=== PATIENT | female | born 1975 | race Caucasian/White ===

== ENCOUNTER → 2023-02-01 11:01 | Outpatient (REF) | payer OTHER, SELFPAY ==
--- NOTE | 2023-02-01 11:09 | CA_ITS ---
Transthoracic Echocardiogram Patient (Last, First, Middle): Maren Ervin M Gender: Female Date of : 1975 Age: 47 Procedure Date: 02/01/2023 Procedure Type: Transthoracic Echocardiogram Location: [facility] Height: 172.72 cm Weight: 86.18 kg BSA: 2.00 m2 Heart Rate: 68 bpm BP: 110 / 70 mmHg Adult Nurse Practitioner: LINDA Salas MD: Dandre Young MD [employer] Machine Operator: Reilly Jarrett MD Symptoms: SOB Study Quality: Adequate ECG Rhythm: Sinus Conclusions: - 1. Normal LV ejection fraction with LVEF of 60 65% with normal diastolic filling pattern 2. Normal cardiac valvular Doppler 3. Mildly dilated ascending aorta at 3.7 cm 4. Normal RV systolic pressure 5. No gross pericardial effusion Findings Left Ventricle Normal left ventricular size, thickness, and systolic function. The visually estimated ejection fraction is between 60-65%. Spectral Doppler is indicative of a normal filling pattern. Peak GLS is -17.6, borderline normal Right Ventricle Normal right ventricular cavity size and systolic function. Atria Both atria are normal in size. There is no evidence of interatrial shunt. Aortic Valve The aortic valve structure and function is likely normal. There is no aortic valve stenosis. There is no aortic valve regurgitation. Mitral Valve Normal mitral valve structure and function. There is trace mitral valve regurgitation. There is no mitral valve stenosis. Pulmonic Valve The pulmonic valve is likely normal. Tricuspid Valve Normal tricuspid valve structure. There is trace tricuspid valve regurgitation. The right ventricular systolic pressure is normal. The right ventricular systolic pressure is 16 mmHg. Normal right atrial pressure. There is no evidence of pulmonary hypertension. Great Vessels The pulmonary artery was not well visualized. There is mild dilatation of the ascending aorta measuring 3.70 cm. Venous The inferior vena cava is normal in size and collapses greater than 50% with inspiration. Pericardium/Pleural There is no evidence of pericardial effusion. Prior Study Comparison No prior study available for comparison. Measurements 2D Linear Measurements IVSd: 1.09 0.6-0.9/0.6-1.0 cm LVIDd: 5.54 3.9-5.3/4.2-5.9 cm LVIDd Index: 2.77 2.4-3.2/2.2-3.1 cm/m2 LVIDs: 3.35 2.0-3.6 cm LVPWd: 0.98 0.7-1.1 cm LA Diam: 3.40 2.7-3.8/3.0-4.0 cm LAIDs Index: 1.70 1.5-2.3 cm/m2 LV Mass: 280.78 67-162/88-224 g LV Mass Index: 140.39 43-95/49-115 g/m2 LVOT Diam: 2.00 3.0+(-)1.3 cm 2D Systolic Function EF 4C: 65.00 >55% EF 2C: 56.00 >55% EF BiP: 62.60 >55% Mitral Valve MV Pk E: 0.68 MV PK A: 0.63 MV Decel Time: 224.00 E/A: 1.10 E'Lateral: 10.70 E'Medial: 7.94 E/E' Med: 8.60 E/E' Lat: 6.40 PHT: 66.00 MVA PHT: 3.33 Decel Garza: 3.03 Aortic Valve AoV Pk Bobby: 1.09 AoV Mn Bobby: 0.82 AoV VTI: 0.23 AoV Pk Grad: 5.00 Aov Mn Grad: 3.00 VLAD Cont.VTI: 2.82 LVOT LVOT Pk Bobby: 0.96 LVOT Mn Bobby: 0.72 LVOT VTI: 0.21 LVOT Pk Grad: 4.00 LVOT Mn Grad: 2.00 LVOT Diam: 2.00 LVOT Area: 3.14 Diastolic Function MV Pk E: 0.68 MV Pk A: 0.63 E/A: 1.10 E'Medial: 7.94 E/E' Med: 8.60 E' Laterial: 10.70 E/E' Lat: 6.40 Right Ventricle TAPSE (mm): 21.90 TVS' Bobby: 12.00 Tricuspid Valve TR Pk Bobby: 1.77 TR Pk Grad: 13.00 RA Press: 3.00 RVSP: 16.00 Great Vessels Aorta Sinus of Valsalva: 4.00 2.0-3.5 cm Ao Asc: 3.70 2.1-3.4 cm Pulmonary Valve PV Pk Bobby: 0.84 Peak PV Grad: 3.00 Updated in Other Vendor System with Status of Final Reilly Jarrett MD electronically signed on 02/01/2023 3:50:30 PM with status of Final
== END ==
LOC: HO.CARD 11:01
PROVIDERS: PCP Internal Medicine; Visit Provider Internal Medicine
DX: R06.02 Shortness of breath (principal)
CPT/HCPCS: 93306; 93356

== ENCOUNTER → 2023-02-01 11:09 | Outpatient (BNV) | payer OTHER, SELFPAY | PROVIDERS: PCP Internal Medicine; Visit Provider Internal Medicine Cardiovascular Disease | DX: R06.02 Shortness of breath (principal) | CPT/HCPCS: 93306 ==